=== PATIENT | male | born 1950 | race Caucasian/White ===

== ENCOUNTER 2017-01-05 09:47 | Emergency (ER) | payer OTHER ==
[~2017-01-05] VITALS: Ht 167.6 cm; Wt 97.9 kg
[~2017-01-05 09:47] MED LIST: ASPEC81 PO; CLOT1CRE47 TOP; COEN1CAP28 PO; FLUN0.02 NAE; GLUCTAB7 PO; LORA10CA2 PO; LPR25 PO; MOUTLIQ79; OMEP20TA PO; OXYC-57 PO; ROSU20TA PO; TRAV0.00 OPB; TRIA0.022 TOP; VANC5CAP PO; WARF5TAB7 PO; ZINC50TA3 PO; ZOLP5TAB6 PO
[2017-01-05 09:58] VITALS: TEMP 36.7; Ht 167.6 cm; Wt 97.9 kg
[2017-01-05] MEDS ORDERED: XYLOCAINE 1%/SOD BICARB 20 ML VIAL INFIL ONE (10:30)
[2017-01-05] MEDS ORDERED: CEPH500C2 PO (10:51)
[2017-01-05] MEDS ORDERED: HYDR-5688 PO (10:51)
[2017-01-05 11:01] VITALS: BP 130/72; PULSE 61; O2SAT 98
[2017-01-05] MEDS ORDERED: ASPCH81X PO (11:04)
[2017-01-05] MEDS ORDERED: SULF800T23 PO (11:06)
[2017-01-05] MEDS ORDERED: LOSA50TA6 PO (11:07)
[2017-01-05] MEDS ORDERED: MISCCAP80 PO (11:07)
[2017-01-05] MEDS ORDERED: ISOS30TA3 PO (11:07)
--- NOTE | 2017-01-05 15:08 | EMERGENCY ROOM VISIT NOTE ---
ED Visit Note First contact with patient: 10:03 I have personally seen and evaluated the patient with the PA. I agree with the diagnosis and management decisions and have been personally involved in the case. Please see Zach Romero PA-C's notes for further details of the history, physical and visit.
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
--- NOTE | 2017-01-08 15:10 | Pharmacy Progress Note ---
ED Pharmacist Culture FollowUp Date of Service: Jan 08, 2017. Patient's culture from chest abscess is growing enterococcus casseliflavus. The patient had been seen on 01/05 for L chest wall abscess. The abscess was drained and cultured. He was placed on Keflex 500mg QID x 10 days in addition to the Bactrim he was already taking. The patient did return to the ER 01/07 for f/u. Per Zach Romero PAC the abscess appeared less red, no drainage was noted and no cellulitic changes were noted. He felt the patient was healing nicely. The patient was to have a surgical consult on the last day of his antibiotic therapy. The organism would not be susceptible to cephalosporins or Bactrim. I did review the case with Vamsi Romero. Given the improved appearance of the abscess he felt that a change in antibiotics is not warranted at this time and perhaps the I&D was responsible for the improved abscess appearance. However if the patient's abscess returns or worsens, one may want to consider the use of Augmentin as this should cover the cultured organism.
== END 2017-01-05 11:02 | disposition home or self-care (01) ==
LOC: C.EDB 10:45
DX: L02.213 Cutaneous abscess of chest wall (principal); I25.10 Atherosclerotic heart disease of native coronary artery without angina pectoris; I10 Essential (primary) hypertension

== ENCOUNTER 2017-01-07 09:07 | Emergency (ER) | payer OTHER ==
[~2017-01-07] VITALS: Ht 167.6 cm; Wt 97.3 kg
[~2017-01-07 09:07] MED LIST changes: +ASPCH81X PO; -ASPEC81 PO; +CEPH500C2 PO; -CLOT1CRE47 TOP; -FLUN0.02 NAE; +HYDR-5688 PO; +ISOS30TA3 PO; +LOSA50TA6 PO; +MISCCAP80 PO; -MOUTLIQ79; -OXYC-57 PO; +SULF800T23 PO; -TRIA0.022 TOP; -VANC5CAP PO; -WARF5TAB7 PO
[2017-01-07 09:15] VITALS: TEMP 36.5; Ht 167.6 cm; Wt 97.3 kg
[2017-01-07 10:14] VITALS: BP 99/58; PULSE 50; O2SAT 96
--- NOTE | 2017-01-07 16:28 | EMERGENCY ROOM VISIT NOTE ---
ED Visit Note First contact with patient: 09:20 Chief Complaint: Abscess recheck. History of Present Illness: Mr. Morrell is a 66-year-old white male who ambulates into the ED requesting a recheck from an I&D procedure that was performed on a chest abscess 2 days ago. Patient reports he is feeling much better. He reports his pain has dramatically decreased and he has noted decreasing redness and swelling in the area of his abscess. He denies fevers, chills, sweats, other skin eruptions, skin color changes, decreased appetite, nausea, vomiting, red streaking around his wound. Review of Systems: As noted above in history of present illness. Physical Examination: Vital Signs: Date Time Temp Pulse Resp B/P (MAP) Pulse Ox O2 Delivery O2 Flow Rate FiO2 01/07/17 10:14 50 15 99/58 96 01/07/17 09:15 36.5 49 22 120/80 96 Room Air GENERAL: 66-year-old male in no acute distress, nontoxic-appearing, afebrile and hemodynamically stable. NEUROLOGICAL: Awake, alert and oriented to person, place and time. Answering questions appropriately and following commands. SKIN: Warm, dry and pink. Chest: Just medial to the left nipple patient has an improving abscess with decreasing redness, no lymphangitis or drainage from his I&D procedure. The skin does not appear cellulitic and it is not hot to the touch. ED Course: Patient is assessed as noted above. Patient's medications were reviewed. Nursing reported on they took off his external bandage over the abscess they accidentally removed the packing material. Patient was educated about today's findings and instructed on his treatment plan ; he verbalizes understanding and agreement with this plan. Clinical Impression: Abscess recheck. Improving abscess. Disposition: Patient discharged home in stable condition. Plan: Patient was encouraged to continue his antibiotic therapy as prescribed. Patient does report on the last day of his Keflex use he has a follow-up appointment with general surgery for reevaluation. Patient was encouraged return ED for worsening signs of infection, uncontrolled pain or any new/concerning symptoms.
== END 2017-01-07 10:14 | disposition home or self-care (01) ==
LOC: C.EDB 09:10
DX: Z09 Encounter for follow-up examination after completed treatment for conditions other than malignant neoplasm (principal); L02.213 Cutaneous abscess of chest wall

== ENCOUNTER 2018-09-17 09:36 | Inpatient (IN) ==
[2018-09-17] MEDS ORDERED: SODIUM CHLORIDE 0.9% 1000ML 500 ML IV ONE (10:05)
[2018-09-17 10:28] LABS: Basophils # (auto) 0.02 K/uL (0-0.2); Basophils % (auto) 0.3 %; Eosinophils % (auto) 2.8 %; Hematocrit (blood only) 34.5 % (42-52); Hemoglobin 11.7 g/dL (14.0-18.0); Lymphocytes # (auto) 0.91 K/uL (1.2-3.4); Lymphocytes % (auto) 12.9 %; Mean Corpuscular Hgb Conc 33.9 g/dL (32-36); Mean Corpuscular Volume 94.3 fL (80-100); Monocytes % (auto) 7.1 %; Neutrophils # (auto) 5.42 K/uL (1.4-6.5); Neutrophils % (auto) 76.9 %; Platelet Count 170 K/uL (130-400); RDW Coefficient of Variation 13.6 % (11.5-14.5); RDW Standard Deviation 46.7 fL (36.4-46.3); Red Blood Count 3.66 M/uL (4.7-6.1); White Blood Count 7.05 K/uL (4.8-10.8)
--- NOTE | 2018-09-17 10:35 | XRay Report ---
XR chest 1V portable CLINICAL HISTORY: Chest Pain dyspnea COMPARISON STUDY: 04/06/2013 FINDINGS: Mild stable cardia megaly. Prior median sternotomy. Diaphragms are smooth. Mild prominence of pulmonary vasculature. IMPRESSION: Mild cardiomegaly. Pulmonary vascular congestion. The above report was generated using voice recognition software. It may contain grammatical, syntax or spelling errors. Electronically signed by: Sampson Trejo M.D. 09/17/2018 10:34 AM
[2018-09-17 10:43] LABS: Alanine Aminotransferase 32 U/L (12-78); Albumin Level 3.5 gm/dl (3.4-5.0); Aspartate Aminotransferase 25 U/L (15-37); Bilirubin Direct < 0.1 mg/dl (0-0.2); Blood Urea Nitrogen 17 mg/dl (7-18); Calcium 8.7 mg/dl (8.5-10.1); Carbon Dioxide 27 mmol/L (21-32); Chloride 111 mmol/L (98-107); Creatinine Clr Calc Pharmacy 99.3 ml/min; Est GFR (African American) 107.7; Est GFR (Non-African American) 92.9; Glucose 118 mg/dl (70-99); Magnesium 1.9 mg/dl (1.8-2.4); Potassium 3.9 mmol/L (3.5-5.1); Sodium 142 mmol/L (136-145)
[2018-09-17 10:52] LABS: Albumin Globulin Ratio 1.1 (0.9-2); Alkaline Phosphatase 52 U/L (45-117); Bilirubin,Total 0.3 mg/dl (0.2-1); Globulin 3.2 gm/dl (2.5-4.0); NT Pro B Type Natriuretic Pept 321 pg/ml (0-900); Phosphorus 2.3 mg/dl (2.5-4.9); Total Protein 6.7 gm/dl (6.4-8.2); Troponin I 0.026 ng/ml (0-0.045)
[2018-09-17 11:08] LABS: iSTAT Creatinine 0.8 mg/dl (0.6-1.3); iSTAT Hemoglobin 11.2 g/dl (14.0-18.0); iSTAT Ionized Calcium 1.23 mmol/l (1.12-1.32); iSTAT Potassium 3.8 mEq/L (3.3-5.0)
[2018-09-17 12:23] LABS: Appearance Urine Clear (Clear); Bilirubin Urine Negative (Negative); Blood Urine Negative (Negative); Color Urine Yellow; Glucose Urine UA Negative (Negative); Ketones Urine Negative (Negative); Leukocyte Esterase Urine Negative (Negative); Nitrite Urine Negative (Negative); Protein Urine Negative (Negative); Urobilinogen Urine Negative (Negative)
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
[2018-09-17] MEDS ORDERED: ACETAMINOPHEN 325 MG TAB PO PRN (15:42)
[2018-09-17] MEDS ORDERED: NITROGLYCERIN 0.3 MG/1 TAB 100 TAB BTL SL PRN (15:42)
[2018-09-17] MEDS ORDERED: FLUOCINONIDE 0.05% CR 15 GM TUBE EXT PRN (15:42)
[2018-09-17] MEDS ORDERED: ZOLPIDEM TARTRATE 10 MG TAB PO PRN (15:42)
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
[2018-09-17] MEDS ORDERED: MECLIZINE 12.5 MG TAB PO PRN (16:19)
[2018-09-17] MEDS: FLUTICASONE PROPIONATE NA SPR 16 GM BTL SCH (17:15)
[2018-09-17] MEDS: PANTOprazole 40 MG TAB PO SCH (17:15)
[2018-09-17] MEDS: ISOSORBIDE MONO EXTENDED REL 30 MG TABCR PO SCH (17:16)
[2018-09-17] MEDS: ASPIRIN 81 MG ECTAB PO SCH (17:16)
[2018-09-17] MEDS: TERAZOSIN HCL 1 MG CAP PO SCH (17:16)
[2018-09-17 17:45] LABS: Prothrombin Time 10.6 Seconds (9.0-12.0)
[2018-09-17] MEDS: HEPARIN SOD 5,000 UNIT/0.5 ML VIAL SQ SCH (21:00)
[2018-09-17] MEDS: ROSUVASTATIN CALCIUM 20 MG TAB PO SCH (21:00)
--- NOTE | 2018-09-17 21:24 | Emergency Department Note ---
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 U/L TSH (0.300-4.500) uIu/ml Urine Color Yellow Urine Appearance Clear (Clear) Urine pH 7.0 (4.5-7.5) Ur Specific [place] 1.010 (1.000-1.030) Urine Protein Negative (Negative) Urine Glucose (UA) Negative (Negative) Urine Ketones Negative (Negative) Urine Blood Negative (Negative) Urine Nitrite Negative (Negative) Urine Bilirubin Negative (Negative) Urine Urobilinogen Negative (Negative) Ur Leukocyte Esterase Negative (Negative) 09/17/18 Range/Units 17:12 WBC (4.8-10.8) K/uL RBC (4.7-6.1) M/uL Hgb (14.0-18.0) g/dL POC Hgb (14.0-18.0) g/dl Hct (42-52) % POC Hct (42-52) % MCV (80-100) fL MCH (25-34) pg MCHC (32-36) g/dL RDW Std Deviation (36.4-46.3) fL RDW Coeff of Collin (11.5-14.5) % Plt Count (130-400) K/uL MPV (7.4-10.4) fL Immature Gran % (Auto) % Neut % (Auto) % Lymph % (Auto) % [place] % (Auto) % Eos % (Auto) % Baso % (Auto) % Immature Gran # (Auto) (0.00-0.02) K/uL Neut # (Auto) (1.4-6.5) K/uL Lymph # (Auto) (1.2-3.4) K/uL [place] # (Auto) (0.11-0.59) K/uL Eos # (Auto) (0-0.5) K/uL Baso # (Auto) (0-0.2) K/uL PT 10.6 INR 1.0 POC Sodium (135-144) mEq/L Sodium (136-145) mmol/L POC Potassium (3.3-5.0) mEq/L Potassium (3.5-5.1) mmol/L POC Chloride (101-112) mEq/L Chloride (98-107) mmol/L Carbon Dioxide (21-32) mmol/L POC Total CO2 (24-31) mEq/l Anion Gap (3-11) POC Anion Gap (16-25) mmol/L POC BUN (7-18) mg/dl BUN (7-18) mg/dl Creatinine (0.6-1.4) mg/dl POC Creatinine (0.6-1.3) mg/dl Est Cr Clr Drug Dosing ml/min Est GFR ( Amer) Est GFR (Non-Af Amer) BUN/Creatinine Ratio (10-20) Glucose (70-99) mg/dl POC Glucose (other) (70-99) mg/dl Calcium (8.5-10.1) mg/dl POC Ioniz Calcium Jez (1.12-1.32) mmol/l Phosphorus (2.5-4.9) mg/dl Magnesium (1.8-2.4) mg/dl Total Bilirubin (0.2-1) mg/dl Direct Bilirubin (0-0.2) mg/dl AST (15-37) U/L ALT (12-78) U/L Alkaline Phosphatase (45-117) U/L Troponin I (0-0.045) ng/ml NT-Pro-B Natriuret Pep (0-900) pg/ml Total Protein (6.4-8.2) gm/dl Albumin (3.4-5.0) gm/dl Globulin (2.5-4.0) gm/dl Albumin/Globulin Ratio (0.9-2) Lipase (73-393) U/L TSH (0.300-4.500) uIu/ml Urine Color Urine Appearance (Clear) Urine pH (4.5-7.5) Ur Specific [place] (1.000-1.030) Urine Protein (Negative) Urine Glucose (UA) (Negative) Urine Ketones (Negative) Urine Blood (Negative) Urine Nitrite (Negative) Urine Bilirubin (Negative) Urine Urobilinogen (Negative) Ur Leukocyte Esterase (Negative) Imaging Data Radiologist's Impression: Radiology results as stated below per my review and the radiologist's interpretation: XR chest 1V portable CLINICAL HISTORY: Chest Pain dyspnea COMPARISON STUDY: 04/06/2013 FINDINGS: Mild stable cardia megaly. Prior median sternotomy. Diaphragms are smooth. Mild prominence of pulmonary vasculature. IMPRESSION: Mild cardiomegaly. Pulmonary vascular congestion. The above report was generated using voice recognition software. It may contain grammatical, syntax or spelling errors. Electronically signed by: Sampson Trejo M.D. 09/17/2018 10:34 AM ECG Data Attestation: I personally reviewed and interpreted this ECG as follows: Indication: bradycardia Rate (beats per minute): 37 Rhythm: sinus bradycardia Findings: + other (normal axis) and + 1st degree AV block; no ST depression, no ST elevation and no acute ischemic change Blood Pressure Blood Pressure Findings: Elevated blood pressure Blood Pressure Disposition: further management by hospitalist YAIR Kaur The patient is a pleasant 67 y/o gentleman with a pmhx of CAD s/p CABG, which was complicated by infection in 2012, HTN, HLD, vertigo who presents to the emergency department with episode of vertigo, which began earlier this morning and continued and so EMS was called and was given Zofran and Ativan for his vertigo with subsequent drowsiness and associated hypoxia to 80s improved to 97% on 2L NC per HPI. On arrival the patient is fatigued, uncomfortable appearing but in NAD, AF, HR fluctuating 40-50s with periodic bradycardia to upper 30s however with stable blood pressure 140-160s/70-90s and mentating throughout. Patient is only on 12.5mg of metoprolol daily. Denies any accidental overdose. Patient is alert on arrival but significantly drowsy. He appears clinically dry with mild worsening of vertigo with head movements. No focal deficits. Intact finger to nose. 5/5 strength and SILT x 4 extremities. EKG with sinus bradycardia to 37, with first degree AV block but no evidence of higher grade block or overt ischemia. Repeat EKG unchanged. CXR with possible vascular congestion however patient appears clinically with clear lungs. Moreover, BNP wnl. Troponin wnl, 0.026. WBC wnl. H/H 11.7/34.5 without recent prior values for comparison. Chemistry without acidosis. No significant electrolyte abnormalities. BUN/Cr > 21 c/w patient's clinically dry appearance. LFTs wnl. Patient appearing somewhat improved after IVF hydration, although still drowsy. Unclear etiology to patient's sx at this time. While patient is bradycardic, there is no high grade block and he is not hypotensive, and so less likely to be etiology. Nevertheless, external pacer pads placed as a precuation. Case d/w Yudelka Rain[facility], who will evaluate the patient for admission. Requests we discuss case with cardiology. Case was reviewed with Dr. Barcenas, [facility] cardiology, who evaluated the patient at the bedside. Agrees patient's bradycardia not likely etiology, rather may be related to patient's discomfort/increased vagal tone. Sx possibly related to patient's h/o peripheral vertigo vs possibility of central vertigo. Recommends holding patient's metoprolol at this time. Impression & Plan Vertigo, Bradycardia, sinus Discharge Plan Visit Data *Final* Discharge Date/Time: 09/17/18 15:05 Chief Complaint: Bradycardia Stated Complaint: vertigo ED Provider: Rizwan Holly Discharge Problem: Vertigo, Bradycardia, sinus Patient Disposition: Admitted As Inpatient Discharge Instructions Interventions: ED Discharge Assessment Last Done: 09/17/18 15:05 The scribe's documentation has been prepared under my direction and personally reviewed by me in its entirety. I confirm that the note above accurately reflects all work, treatment, procedures, and medical decision making performed by me.
[2018-09-18 05:31] LABS: Basophils # (auto) 0.02 K/uL (0-0.2); Basophils % (auto) 0.4 %; Eosinophils % (auto) 3.8 %; Hematocrit (blood only) 33.4 % (42-52); Hemoglobin 11.3 g/dL (14.0-18.0); Lymphocytes # (auto) 1.66 K/uL (1.2-3.4); Lymphocytes % (auto) 31.5 %; Mean Corpuscular Hgb Conc 33.8 g/dL (32-36); Mean Corpuscular Volume 94.1 fL (80-100); Mean Platelet Volume 9.9 fL (7.4-10.4); Monocytes # (auto) 0.66 K/uL (0.11-0.59); Monocytes % (auto) 12.5 %; Neutrophils # (auto) 2.73 K/uL (1.4-6.5); Neutrophils % (auto) 51.8 %; Platelet Count 167 K/uL (130-400); RDW Coefficient of Variation 13.6 % (11.5-14.5); RDW Standard Deviation 47.1 fL (36.4-46.3); Red Blood Count 3.55 M/uL (4.7-6.1); White Blood Count 5.27 K/uL (4.8-10.8)
[2018-09-18] MEDS: HEPARIN SOD 5,000 UNIT/0.5 ML VIAL SQ SCH ×3 (05:32→20:27)
[2018-09-18 05:50] LABS: BUN Creatinine Ratio 12.7 (10-20); Calcium 8.2 mg/dl (8.5-10.1); Creatinine Clr Calc Pharmacy 91.1 ml/min; Est GFR (Non-African American) 90.6; Magnesium 1.9 mg/dl (1.8-2.4); Potassium 3.7 mmol/L (3.5-5.1)
[2018-09-18] MEDS: TERAZOSIN HCL 1 MG CAP PO SCH (08:04)
[2018-09-18] MEDS: LORATADINE 10 MG TAB PO SCH (08:04)
[2018-09-18] MEDS: CEROVITE ADV FORMULA TAB PO SCH (08:04)
[2018-09-18] MEDS: ISOSORBIDE MONO EXTENDED REL 30 MG TABCR PO SCH (08:04)
[2018-09-18] MEDS: LOSARTAN POTASSIUM 50 MG TAB PO SCH (08:04)
[2018-09-18] MEDS: ASPIRIN 81 MG ECTAB PO SCH (08:04)
[2018-09-18] MEDS: PANTOprazole 40 MG TAB PO SCH (08:04)
[2018-09-18] MEDS: FLUTICASONE PROPIONATE NA SPR 16 GM BTL SCH (08:05)
[2018-09-18] MEDS ORDERED: NON-FORMULARY MEDICATION (Zinc 50 MG) PO SCH (09:00)
[2018-09-18] MEDS ORDERED: NON-FORMULARY MEDICATION (Coenzyme Q10 [Co Q-10] 100 MG) PO SCH (09:00)
[2018-09-18] MEDS ORDERED: NON-FORMULARY MEDICATION (Glucosamine-Chondroitin 1 TAB) PO SCH (09:00)
--- NOTE | 2018-09-18 11:44 | Hospitalist Progress Note ---
Date of Service September 18, 2018 Assessment & Plan (1) Vertigo: CT head: no CVA, mass will obtain MRI with and without contrast today monitor closely (2) Bradycardia: Noted to have bradycardia heart rate being over 40s Metoprolol HELD dizziness resolved, still has some lightheadedness continue to monitor off Metoprolol Brain MRI pending (3) Hx of CABG: troponins negative (4) HTN (hypertension): Continue current medications except beta-geronimo (5) Hyperlipidemia: Continue statin CODE STATUS Full code DVT prophylaxis Subcu heparin Subjective ff up for dizziness, bradycardia seen resting in bed, comfortable does reports dizziness has resolved, but still feels lightheaded, "head is full" mostly with ambulation denies any other focal neuro symptoms denies chest pain, dyspnea HR in the high 40s no other symptoms Physical Exam Vital Signs (Past 24 Hours): Last Vital Signs Temp 36.4 C L 09/18/18 11:25 Pulse 44 L 09/18/18 11:25 Resp 16 09/18/18 11:25 BP 120/59 L 09/18/18 11:25 Pulse Ox 95 09/18/18 11:25 Physical Exam: General- oriented x 3, not in distress, speaks in sentences with no effort or accessory muscle use Eyes- anicteric Neck- no JVD Lungs- clear breath sounds bilaterally, no rales/wheezes Heart- bradycardic, regular rhythm; no murmurs Abdomen- normal bowel sounds, nondistended, soft, nontender Extremities- no pretibial edema, no calf tenderness Neuro- alert, oriented x 3; no gross focal neurologic deficits Skin- warm & dry Results & Data Laboratory Results Laboratory Results - last 24 hr 09/17/18 09/17/18 09/17/18 16:48 17:12 22:03 WBC RBC Hgb Hct MCV MCH MCHC RDW Std Deviation RDW Coeff of Collin Plt Count MPV Immature Gran % (Auto) Neut % (Auto) Lymph % (Auto) [place] % (Auto) Eos % (Auto) Baso % (Auto) Immature Gran # (Auto) Neut # (Auto) Lymph # (Auto) [place] # (Auto) Eos # (Auto) Baso # (Auto) PT 10.6 INR 1.0 Sodium Potassium Chloride Carbon Dioxide Anion Gap BUN Creatinine Est Cr Clr Drug Dosing Est GFR ( Amer) Est GFR (Non-Af Amer) BUN/Creatinine Ratio Glucose Calcium Magnesium Troponin I 0.029 0.039 09/18/18 09/18/18 05:15 05:15 WBC 5.27 RBC 3.55 L Hgb 11.3 L Hct 33.4 L MCV 94.1 MCH 31.8 MCHC 33.8 RDW Std Deviation 47.1 H RDW Coeff of Collin 13.6 Plt Count 167 MPV 9.9 Immature Gran % (Auto) 0.0 Neut % (Auto) 51.8 Lymph % (Auto) 31.5 [place] % (Auto) 12.5 Eos % (Auto) 3.8 Baso % (Auto) 0.4 Immature Gran # (Auto) 0.00 Neut # (Auto) 2.73 Lymph # (Auto) 1.66 [place] # (Auto) 0.66 H Eos # (Auto) 0.20 Baso # (Auto) 0.02 PT INR Sodium 141 Potassium 3.7 Chloride 111 H Carbon Dioxide 27 Anion Gap 3.0 BUN 11 Creatinine 0.84 Est Cr Clr Drug Dosing 91.1 Est GFR ( Amer) 105.0 Est GFR (Non-Af Amer) 90.6 BUN/Creatinine Ratio 12.7 Glucose 89 Calcium 8.2 L Magnesium 1.9 Troponin I
[2018-09-18] MEDS ORDERED: GADOBUTROL 30ML VIAL IV PRN (16:49)
[2018-09-18] MEDS ORDERED: AMLODIPINE BESYLATE 5 MG TAB PO ONE (17:39)
--- NOTE | 2018-09-18 18:41 | Magnetic Resonance Report ---
MR brain IAC wo/w con HISTORY: 67 years-old Male dizziness, r/o cva/mass acute headache with nausea, vomiting and vertigo. COMPARISON: CT head 09/17/2018 TECHNIQUE: MRI of the brain was obtained both with and without the use of 9 mL Gadavist utilizing int ernal auditory canal mass protocol. FINDINGS: Cyber Security Architect localizer images demonstrate no gross abnormality of the extracranial tissues. There is no rest ricted diffusion to suggest acute or subacute infarction. The midline structures including the corpus callosum, brainstem, optic chiasm, pituitary and pineal glands appear unremarkable the sagittal T1 s eries. No cerebellar tonsillar herniation. Degenerative changes noted about the imaged cervical spine . There is no acute intracranial hemorrhage, midline shift, abnormal extra-axial collections, hydroceph alus or intra-axial mass. Minimal T2/FLAIR hyperintensities about the periventricular white matter henry ggests underlying chronic microvascular ischemic change. The major flow voids at the level the skull base appear to be patent. Mastoid air cells are clear. There is moderate mucosal thickening of the fr ontal, sphenoid and maxillary sinuses with moderate to severe ethmoid sinus mucosal thickening. Orbit s are unremarkable. The skull and soft tissues are within normal limits. The bilateral internal auditory canals, 7th and 8th cranial nerves appear to be within normal limits. No mass of the internal auditory canals or cerebellar pontine angles. The cisternal portions of the 5th cranial nerves are within normal limits bilaterally. There is no abnormal intra-axial or extra-ax ial enhancement identified. IMPRESSION: 1. No acute intracranial abnormality. 2. No acute or subacute infarction. 3. Normal appearance of the bilateral internal auditory canals, VII and VIII cranial nerves. No assoc iated mass or abnormal enhancement. 4. Suggestion of minimal chronic microvascular ischemic changes. 5. Moderate to severe paranasal sinus disease. The above report was generated using voice recognition software. It may contain grammatical, syntax o r spelling errors. Electronically signed by: Thierno Sethi M.D. 09/18/2018 6:39 PM
[2018-09-18] MEDS: ROSUVASTATIN CALCIUM 20 MG TAB PO SCH (20:26)
[2018-09-19] MEDS: HEPARIN SOD 5,000 UNIT/0.5 ML VIAL SQ SCH ×3 (05:44→22:09)
[2018-09-19] MEDS: CEROVITE ADV FORMULA TAB PO SCH (07:41)
[2018-09-19] MEDS: PANTOprazole 40 MG TAB PO SCH (07:41)
[2018-09-19] MEDS: FLUTICASONE PROPIONATE NA SPR 16 GM BTL SCH (07:41)
[2018-09-19] MEDS: LOSARTAN POTASSIUM 50 MG TAB PO SCH (07:41)
[2018-09-19] MEDS: ISOSORBIDE MONO EXTENDED REL 30 MG TABCR PO SCH (07:41)
[2018-09-19] MEDS: ASPIRIN 81 MG ECTAB PO SCH (07:42)
[2018-09-19] MEDS: LORATADINE 10 MG TAB PO SCH (07:42)
[2018-09-19] MEDS: TERAZOSIN HCL 1 MG CAP PO SCH (07:42)
--- NOTE | 2018-09-19 12:16 | Cardiology Progress Note ---
Date of Service September 19, 2018 Assessment & Plan (1) Vertigo: The patient was seen in cardiology follow-up today having had initially been seen in consultation by Dr. Barcenas on 09/17/18. The patient describes that he was in his normal state of health on evening and he went to a play. Next morning he woke up at approximately 6 AM and felt dizziness and nauseousness. He felt that the room was spinning and felt disoriented. He laid in bed and this felt worse. He then had to crawl on the floor. Ultimately his spouse brought him to the emergency room where initial EKG performed on 09/17 at 9:51 AM revealed sinus bradycardia at 37 bpm with first-degree AV block. The patient has been seen by physical therapy and his symptoms had been reproduced with the Umair maneuver. He is feeling better but not quite back to himself. He notes he had been recently trying to get back in shape exercising at the gym. He had a transient episode of dizziness approximately 2 weeks ago but he attributed this to the fact that he had not eaten before his afternoon workout. I went back and reviewed his outpatient record. Serial EKG tracings over the last few years have revealed stable sinus bradycardia in the 50-55 bpm minute range with borderline first-degree AV block and first-degree AV block. He had a stress test several years ago in follow-up after his bypass surgery during which time below average exercise tolerance was noted and the heart rate response to exercise was blunted. The patient describes a long-standing history of being told that he had a slow heart rate even when he was in the . He is only been on 12.5 mg of metoprolol daily, and this is been placed on hold. At present, I think the patient's symptoms are very consistent with vertigo from inner ear etiology however he certainly has significant sinus bradycardia. I initially planned to have him ambulate in the hallway while on telemetry today to assess his heart rate response, but he is not quite feeling up to this. Discussed the option of proceeding with pacemaker implantation with the patient. The patient recalls that he had a very complicated postoperative course after his bypass surgery in 2012 and this included a sternal wound infection and Clostridium difficile infection. He is very hesitant to undergo an invasive procedure and would like to avoid pacemaker if at all possible. At this time I recommend ongoing observation on telemetry. I am going to recommend proceeding with a carotid duplex and a resting transthoracic echocardiogram for further assessment. His TSH was normal earlier this hospital stay. The patient was agreeable to this approach. (2) Bradycardia, sinus: As noted above (3) HTN (hypertension): Blood pressure was elevated yesterday, but improved today. With most recent reading of 126/67. Continue current dose of losartan 50 mg by mouth daily, terazosin, and isosorbide mononitrate. (4) Hx of CABG: Continue aspirin and rosuvastatin. Patient is not a candidate for beta-geronimo due to the sinus bradycardia. Subjective Chief complaint: Follow-up dizziness Subjective: Patient seen and examined. Recent EKGs and telemetry data were reviewed. The patient has a history of coronary heart disease and underwent coronary artery bypass graft surgery in 2012. I had most recently seen him shortly after the surgery in 2012 and he has been following with Sampson Plummer PA-C of our practice in the interim. The patient states he feels slightly better today compared to when he was admitted to the hospital, but he is still not quite himself with some vague dizziness. Physical Exam Vital Signs (Past 24 Hours): Last Vital Signs Temp 36.3 C L 09/19/18 11:08 Pulse 46 L 09/19/18 11:08 Resp 18 09/19/18 11:08 BP 126/67 09/19/18 11:08 Pulse Ox 97 09/19/18 11:08 Physical Exam: General: no acute distress and stated age Eyes: conjunctiva are pink and non-injected, sclera clear Neck: normal jugular venous pulse, no hepatojugular reflux Chest: normal shape and normal respiratory effort Lungs: clear to auscultation and percussion Cardiac Exam: - regular heart sounds, no murmurs, rubs, or gallops, no jugular venous distention Abdomen: abdomen soft, non-tender, no abnormal masses and no hepatosplenomegaly Extremities: no edema and no cyanosis Neuro:awake, coversant, follows commands, no focal motor deficits Psych: appropriate affect and insight. Results & Data Diagnostic Findings EKG performed 09/18/18 at 6:41 AM: Sinus bradycardia at 47 bpm with first-degree AV block, MI interval 246 ms.
[2018-09-19 14:52] LABS: Lyme Ab IgG w/WB Rflx Negative (Negative); Lyme Ab IgM w/WB Rflx Negative (Negative)
--- NOTE | 2018-09-19 20:01 | Hospitalist Progress Note ---
Date of Service September 19, 2018 Assessment & Plan (1) Vertigo: CT head: no CVA, mass MRI with and without contrast: No CVA, lesions Continue meclizine as needed Check for Lyme titer (2) Bradycardia: Noted to have bradycardia heart rate being over 40s Metoprolol HELD dizziness resolved, still has some lightheadedness, fatigue Thermo Cementing Folder Operator consulted Echocardiogram ordered continue to monitor off Metoprolol Possible pacemaker placement if with no improvement (3) Hx of CABG: troponins negative (4) HTN (hypertension): Interval health, blood pressure trending up Amlodipine started Continue to monitor (5) Hyperlipidemia: Continue statin CODE STATUS Full code DVT prophylaxis Subcu heparin Disposition Pending Cardiology evaluation progress Anticipate to return home medically stable and cleared by cardiology service Subjective ff up for dizziness, bradycardia Seen sitting up in bed, not in distress States physical therapy today performed Umair maneuver, but dizziness recurred after the maneuver Still feels some lightheadedness and tiredness with minimal exertion Denies fever or chills, sinus pressure, chest pain, palpitations, shortness of breath No other symptoms Physical Exam Vital Signs (Past 24 Hours): Last Vital Signs Temp 36.4 C L 09/19/18 19:50 Pulse 42 L 09/19/18 19:50 Resp 20 09/19/18 19:50 BP 183/84 H 09/19/18 19:50 Pulse Ox 99 09/19/18 19:50 Physical Exam: General- oriented x 3, not in distress, speaks in sentences with no effort or accessory muscle use Eyes- anicteric Neck- no JVD Lungs- clear breath sounds bilaterally, no crackles or wheezing Heart-bradycardic heart rate, regular rhythm; no murmurs Abdomen- normal bowel sounds, nondistended, soft, nontender Extremities- no pretibial edema, no calf tenderness Neuro- alert, oriented x 3; no gross focal neurologic deficits Skin- warm & dry Results & Data Laboratory Results Laboratory Results - last 24 hr 09/19/18 12:06 Lyme Disease IgG Ab Negative Lyme Disease IgM Ab Negative
[2018-09-19] MEDS: ROSUVASTATIN CALCIUM 20 MG TAB PO SCH (20:04)
[2018-09-20] MEDS: HEPARIN SOD 5,000 UNIT/0.5 ML VIAL SQ SCH ×3 (05:44→22:02)
--- NOTE | 2018-09-20 07:10 | Ultrasound Report ---
BILATERAL CAROTID DOPPLER STUDY HISTORY: dizziness, rule out carotid stenosis COMPARISON: None. TECHNIQUE: Real-time, grayscale, and color Doppler sonography of the carotid arteries was performed. Imaging reviewed in the transverse and longitudinal planes. All measurements were calculated based on NASCET criteria. FINDINGS: Antegrade flow is seen in the bilateral vertebral arteries. The brachial pressures are elevated and asymmetric measuring 213/102 on the right and 185/113 on the left. However, the subclavian arteries demonstrate similar and normal velocities. The peak systolic velocity within the right ICA is 70 cm/s. The right systolic ratio is 1.0. The peak systolic velocity within the left ICA is 92 cm/s. The left systolic ratio is 1.0. IMPRESSION: 1. No hemodynamically significant stenosis seen within the carotid arteries. 2. Elevated brachial pressures as described above. Electronically signed by: Balbir Aggarwal M.D. 09/20/2018 7:08 AM
[2018-09-20] MEDS: ISOSORBIDE MONO EXTENDED REL 30 MG TABCR PO SCH (07:49)
[2018-09-20] MEDS: FLUTICASONE PROPIONATE NA SPR 16 GM BTL SCH (07:49)
[2018-09-20] MEDS: PANTOprazole 40 MG TAB PO SCH (07:50)
[2018-09-20] MEDS: TERAZOSIN HCL 1 MG CAP PO SCH (07:50)
[2018-09-20] MEDS: CEROVITE ADV FORMULA TAB PO SCH (07:50)
[2018-09-20] MEDS: LORATADINE 10 MG TAB PO SCH (07:50)
[2018-09-20] MEDS: LOSARTAN POTASSIUM 50 MG TAB PO SCH (07:50)
[2018-09-20] MEDS: ASPIRIN 81 MG ECTAB PO SCH (07:50)
--- NOTE | 2018-09-20 11:53 | Cardiology Progress Note ---
Date of Service September 20, 2018 Assessment & Plan (1) Bradycardia, sinus: Patient's vertigo symptoms have resolved. He still does not feel himself. Typically he has been ambulating at the gym doing exercises to get in shape without any issues with the exception of an episode of lightheadedness 2 weeks ago. Stress test as an outpatient several years ago documented attenuated heart rate response despite only being on metoprolol tartrate 12.5 mg daily. Ongoing profound sinus bradycardia in the 40-50 bpm range persists despite having had held his metoprolol tartrate 12.5 since Thursday. Although patient had an episode prompting him to come to the hospital that was consistent with vertigo, his ongoing symptoms are suggestive of sinus node dysfunction. I spoke to him again about permanent pacemaker. And he is interested in discussing this with electrophysiology. (2) Hx of CABG: Continue aspirin, isosorbide mononitrate, rosuvastatin. Metoprolol held due to bradycardia is noted. (3) HTN (hypertension): Patient remains hypertension. The blood pressure readings are somewhat uncharacteristic for him. I do not think his high blood pressure explains his symptoms as his most recent blood pressure measurement this morning at 1130 was 120/63 and he still does not feel well. I do think it is time however to treat his blood pressure medications as he has not improved with observation and will therefore increase his losartan from 50 mg daily to 100 mg daily and will add low-dose amlodipine. Subjective Chief complaint: Generalized weakness, episodic dizziness Subjective: Patient states he is still not back to himself. Last evening while sleeping he stood up to use the bathroom and had to sit back down again. He has not had any additional mahamed vertigo-like symptoms, but notes generalized fatigue. Telemetry reveals ongoing sinus bradycardia for the most part in the range of 45 bpm while awake, and down to 37 bpm while sleeping. I see no evidence of high-grade AV block. Physical Exam Vital Signs (Past 24 Hours): Last Vital Signs Temp 36.4 C L 09/20/18 11:29 Pulse 43 L 09/20/18 11:29 Resp 18 09/20/18 11:29 BP 120/63 09/20/18 11:29 Pulse Ox 94 09/20/18 11:29 Physical Exam: General: no acute distress and stated age Eyes: conjunctiva are pink and non-injected, sclera clear Neck: normal jugular venous pulse, no hepatojugular reflux Chest: normal shape and normal respiratory effort Lungs: clear to auscultation and percussion Cardiac Exam: - regular heart sounds, bradycardic no murmurs, rubs, or gallops, no jugular venous distention Abdomen: abdomen soft, non-tender, no abnormal masses and no hepatosplenomegaly Musculoskeletal: no gait disturbance, no weakness Extremities: no edema and no cyanosis Neuro:awake, coversant, follows commands, no focal motor deficits Psych: appropriate affect and insight. Results & Data Diagnostic Findings Echocardiogram revealed normal left ventricular wall motion, normal left ventricular systolic function with calculated left ventricular ejection fraction of 54%. Mild aortic valve sclerosis without stenosis was noted. The aortic root and proximal ascending aorta were mildly dilated. Carotid duplex, no hemodynamically significant carotid artery stenosis. Elevated brachial artery pressures with normal subclavian artery velocities.
[2018-09-20] MEDS ORDERED: LOSARTAN POTASSIUM 50 MG TAB PO ONE (12:00)
[2018-09-20] MEDS: AMLODIPINE BESYLATE 5 MG TAB PO SCH (12:50)
[2018-09-20] MEDS: ROSUVASTATIN CALCIUM 20 MG TAB PO SCH (19:48)
--- NOTE | 2018-09-20 20:06 | Hospitalist Progress Note ---
Date of Service September 20, 2018 Assessment & Plan (1) Vertigo: CT head: no CVA, mass MRI with and without contrast: No CVA, lesions Continue meclizine as needed Lyme titer: negative improving (2) Bradycardia: Noted to have bradycardia heart rate being over 40s Metoprolol HELD dizziness resolved, still has some lightheadedness, fatigue Breaker Mechanic consulted Echocardiogram ordered continue to monitor off Metoprolol still feeling tired, lightheaded EP consulted for possible pacemaker placement (3) Hx of CABG: troponins negative (4) HTN (hypertension): Interval health, blood pressure trending up Amlodipine started Losartan increased monitor (5) Hyperlipidemia: Continue statin CODE STATUS Full code DVT prophylaxis Subcu heparin Disposition Pending Cardiology evaluation progress Anticipate to return home medically stable and cleared by cardiology service Subjective ff up for dizziness, bradycardia seen resting in bed states he feels that dizziness is improving but still feels lightheaded, tired denies chest pain, dyspnea no fever/chills denies other symptoms Physical Exam Vital Signs (Past 24 Hours): Last Vital Signs Temp 36.4 C L 09/20/18 19:49 Pulse 53 L 09/20/18 19:49 Resp 19 09/20/18 19:49 BP 185/90 H 09/20/18 19:49 Pulse Ox 98 09/20/18 19:49 Physical Exam: General- oriented x 3, not in distress, speaks in sentences with no effort or accessory muscle use Eyes- anicteric Neck- no JVD Lungs- clear BS BL Heart-bradycardic, regular rhythm Abdomen- normal bowel sounds, nondistended, soft, nontender Extremities- no pretibial edema, no calf tenderness Neuro- alert, oriented x 3; no gross focal neurologic deficits Skin- warm & dry
[2018-09-21] MEDS: HEPARIN SOD 5,000 UNIT/0.5 ML VIAL SQ SCH ×2 (06:03→14:15)
[2018-09-21 07:01] LABS: BUN Creatinine Ratio 13.2 (10-20); Calcium 9.2 mg/dl (8.5-10.1); Creatinine Clr Calc Pharmacy 79.9 ml/min; Est GFR (African American) 95.6; Est GFR (Non-African American) 82.5; Potassium 4.1 mmol/L (3.5-5.1)
[2018-09-21] MEDS: AMLODIPINE BESYLATE 5 MG TAB PO SCH (07:48)
[2018-09-21] MEDS: ASPIRIN 81 MG ECTAB PO SCH (07:48)
[2018-09-21] MEDS: FLUTICASONE PROPIONATE NA SPR 16 GM BTL SCH (07:49)
[2018-09-21] MEDS: LORATADINE 10 MG TAB PO SCH (07:49)
[2018-09-21] MEDS: PANTOprazole 40 MG TAB PO SCH (07:50)
[2018-09-21] MEDS: CEROVITE ADV FORMULA TAB PO SCH (07:50)
[2018-09-21] MEDS: ISOSORBIDE MONO EXTENDED REL 30 MG TABCR PO SCH (07:50)
[2018-09-21] MEDS: TERAZOSIN HCL 1 MG CAP PO SCH (07:50)
[2018-09-21] MEDS ORDERED: LOSARTAN POTASSIUM 50 MG TAB PO SCH (09:00)
--- NOTE | 2018-09-21 12:00 | Cardiology Progress Note ---
Date of Service September 21, 2018 Assessment & Plan (1) Vertigo: Patient's presentation was certainly consistent with vertigo, and his symptoms have been reproduced during maneuvers with physical therapy. For the last few days he has made a slow but steady improvement. (2) Bradycardia, sinus: The patient has a long-standing history of documented chronic sinus bradycardia as an outpatient. At this time, his heart rates are not significantly different than those which have been documented on a chronic basis as an outpatient. We have been observing the patient for several days, and at this point, I think it is premature to commit the patient to a pacemaker. Therefore recommend discharge off of metoprolol and close outpatient follow-up. If he has ongoing issues with exertional fatigue dizziness, will reconsider indication for pacemaker. Patient was agreeable to this plan, as was his spouse, Radha, whom I spoke to on the telephone. I am going to cancel the EP consultation for now. I have requested an outpatient follow-up visit with me in 2 to 3 weeks at [facility]. The patient also already has a follow-up visit with Mr. Plummer of our practice in October and we are going to keep this as well. If he still feels poorly as an outpatient, will have low threshold for referring him for outpatient pacemaker placement. (3) HTN (hypertension): Metoprolol tartrate was discontinued. Increase losartan from 50 mg to 100 mg daily at discharge. Discharge on new medication of amlodipine 2.5 mg daily. (4) Hx of CABG: Not a candidate for beta-geronimo due to his baseline slow heart rate as noted. Continue aspirin, isosorbide mononitrate, losartan, amlodipine, rosuvastatin. 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 He was counseled that his activity should be limited by symptoms or commonsense. He needs to take his recreational vehicle (RV) for a service appointment in [place]. I recommended that he should hold off on such a driving commitment until he is at least sure it is back to his baseline after about a week. If he is feeling well within 2 days, I think would be reasonable for him to start driving his private automobile around town. Subjective Chief complaint: Follow-up dizziness Subjective: Patient feels improved subjectively today. Blood pressure was improved yesterday afternoon after the addition of amlodipine and increasing losartan dose, trended up however again overnight last night and is improved again today. Telemetry reveals sinus bradycardia in the range of 45 to 55 bpm at rest. The patient ambulated in the hallway. 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 He walked at a reasonable pace, was asymptomatic, and his heart rates came up to the mid 70 be per minute range. He denies any additional vertigo type symptoms. Physical Exam Vital Signs (Past 24 Hours): Last Vital Signs Temp 36.2 C L 09/21/18 11:20 Pulse 49 L 09/21/18 11:20 Resp 18 09/21/18 11:20 BP 104/61 09/21/18 11:20 Pulse Ox 97 09/21/18 11:20 Constitutional: WD/WN, vitals as above Respiratory: normal respiratory effort, lungs clear to auscultation Cardiovascular: Rate/Rhythm: regular rate and + bradycardic Heart Sounds: no murmur Vessels: no JVD Extremities: + AV fistula; no edema Skin: no rashes, warm and dry Neurologic: No focal deficits, conversant, follows commands Results & Data Laboratory Results Comprehensive Metabolic Panel 09/21/18 Range/Units 05:54 Sodium 142 (136-145) mmol/L Potassium 4.1 (3.5-5.1) mmol/L Chloride 109 H (98-107) mmol/L Carbon Dioxide 28 (21-32) mmol/L BUN 13 (7-18) mg/dl Creatinine 0.95 (0.6-1.4) mg/dl Glucose 86 (70-99) mg/dl Calcium 9.2 (8.5-10.1) mg/dl Intake and Output 09/20/18 09/21/18 09/21/18 22:59 06:59 14:59 Intake Total 300 / 1495 Balance 300 / 1495 Intake: Oral 300 / 1495 Other: Other Intake Source Sips # Unmeasured Voids 1 Weight 91.4 kg Medications Administered Current Inpatient Medications Acetaminophen (Tylenol) 650 mg PO Q6H PRN PRN Reason: Pain Stop: 10/17/18 15:41 Amlodipine Besylate (Norvasc) 2.5 mg PO QAM [facility] Stop: 10/20/18 11:59 Last Admin: 09/21/18 07:48 Dose: 2.5 mg Documented by: Aspirin (Ecotrin Ectab) 81 mg PO DAILY [facility] Stop: 10/17/18 15:41 Last Admin: 09/21/18 07:48 Dose: 81 mg Documented by: Fluocinonide (Lidex 0.5%) 1 appln EXT BID PRN PRN Reason: Rash Stop: 10/17/18 15:41 Last Admin: 09/20/18 22:02 Dose: 1 appln Documented by: Fluticasone Propionate (Flonase) 1 sprays NA DAILY [facility] Stop: 10/17/18 15:41 Last Admin: 09/21/18 07:49 Dose: 1 sprays Documented by: Gadobutrol (Gadavist 30ml) 9 ml IV ONCE PRN PRN Reason: Interaction Checking Stop: 09/22/18 16:48 Last Admin: 09/18/18 16:50 Dose: 9 ml Documented by: Heparin Sodium (Porcine) (Heparin Sodium (Porcine)) 5,000 units SQ Q8 [facility] Stop: 10/17/18 21:59 Last Admin: 09/21/18 06:03 Dose: 5,000 units Documented by: Isosorbide Mononitrate (Imdur Extended Rel) 30 mg PO QAM [facility] Stop: 10/17/18 15:41 Last Admin: 09/21/18 07:50 Dose: 30 mg Documented by: Loratadine (Claritin) 10 mg PO DAILY [facility] Stop: 10/18/18 08:59 Last Admin: 09/21/18 07:49 Dose: 10 mg Documented by: Losartan Potassium (Cozaar) 100 mg PO QAM [facility] Stop: 10/21/18 08:59 Last Admin: 09/21/18 07:49 Dose: 100 mg Documented by: Meclizine HCl (Antivert) 12.5 mg PO Q6H PRN PRN Reason: Dizziness or Vertigo Stop: 10/17/18 16:18 Last Admin: 09/17/18 21:01 Dose: 12.5 mg Documented by: Multivitamins/Minerals (Multivitamin W/ Minerals Tab) 1 tab PO DAILY [facility] Stop: 10/18/18 08:59 Last Admin: 09/21/18 07:50 Dose: 1 tab Documented by: Nitroglycerin (Nitrostat) 0.3 mg SL UD PRN PRN Reason: Chest Pain Stop: 10/17/18 15:41 Pantoprazole Sodium (Protonix) 40 mg PO DAILY [facility] Stop: 10/17/18 15:41 Last Admin: 09/21/18 07:50 Dose: 40 mg Documented by: Rosuvastatin Calcium (Crestor) 40 mg PO HS [facility] Stop: 10/17/18 20:59 Last Admin: 09/20/18 19:48 Dose: 40 mg Documented by: Terazosin HCl (Hytrin) 2 mg PO DAILY [facility] Stop: 10/17/18 15:41 Last Admin: 09/21/18 07:50 Dose: 2 mg Documented by: Zolpidem Tartrate (Ambien) 10 mg PO HS PRN PRN Reason: Sleep Stop: 10/17/18 15:41
--- NOTE | 2018-09-21 13:05 | Discharge Summary ---
Date of Service September 21, 2018 Admission HPI Per Admitting Provider He is a 67-year-old male patient past medical history of CAD status post CABG, history of back pain with sciatica, hypertension, hyperlipidemia, and history of deep venous thrombosis of lower extremity apparently woke up at 5 AM with severe dizziness. He tried to go to bathroom and he almost passed out in the bathroom. He was complaining of more dizziness with the neck movement and he denied to have any headache, any blurred vision, any chest pain and/or pressure, any numbness or tingling in the extremities or any weakness on the inside of the body. He has had a severe episode in the past. At the emergency room he was noted to have bradycardia with a heart rate lower 40s. He was seen by the manager clinical informatics and was advised for admission with the possible cause of dizziness being labyrinthitis. Admission Exam Per Admitting Provider Vital Signs (Past 24 Hours): Last Vital Signs Temp 36.3 C L 09/17/18 15:44 Pulse 50 L 09/17/18 15:44 Resp 20 09/17/18 15:44 BP 178/81 H 09/17/18 15:44 Pulse Ox 95 09/17/18 15:44 Physical Exam: Anxious but no apparent distress Constitutional: WD/WN, vitals as above Eyes: PERRL, conjunctivae normal, anicteric sclerae no nystagmus ENMT: external ear and nose normal, oropharynx normal Neck: trachea midline, no thyromegaly Rapid movement of the head and neck did produce some dizziness Respiratory: normal respiratory effort, lungs clear to auscultation Cardiovascular: Rate/Rhythm: regular rate and regular rhythm Heart Sounds: normal S1 and normal S2 Gastrointestinal (Abdomen): Inspection/Auscultation: abdomen normal to in spection and normal bowel sounds Neurologic: Alert, awake and oriented x3 Principal Diagnosis DIZZINESS, LIKELY SECONDARY TO VERTIGO Discharge Exam Vital Signs (Past 24 Hours): Last Vital Signs Temp 36.2 C L 09/21/18 11:20 Pulse 49 L 09/21/18 11:20 Resp 18 09/21/18 11:20 BP 104/61 09/21/18 11:20 Pulse Ox 97 09/21/18 11:20 Physical Exam: General- oriented x 3, not in distress, speaks in sentences with no effort or accessory muscle use Eyes- anicteric Neck- no JVD Lungs- clear BS, no rales, BL Heart- mild bradycardia, regular rhythm; no murmurs Abdomen- normal bowel sounds, nondistended, soft, nontender Extremities- no pretibial edema, no calf tenderness Neuro- alert, oriented x 3; no gross focal neurologic deficits Skin- warm & dry Discharge Data Allergies Allergy/AdvReac Type Severity Reaction Status Date / Time Esmizan-Swf-Dos Reductase Allergy Unknown ELEVATED CK Verified 01/05/17 11:08 Inhibitor cholestyramine Allergy Gastrointestinal Unverified 09/17/18 10:54 Upset Consultations 09/17/18 12:00 ED Decision to Admit Stat 09/19/18 08:30 Consult Cardiology Routine Procedures Performed Operation Date: 09/22/18 08:00 <No data on this case meets the specified criteria> Ordered Studies 09/17/18 14:22 CT head/brain wo con Stat IMPRESSION: 1. No acute intracranial findings. 2. No acoustic neuroma identified however sensitivity diminished on this unenhanced exam. An MRI of the brain with and without contrast IAC protocol would have increased sensitivity. 09/18/18 15:33 MR brain IAC wo/w con Routine IMPRESSION: 1. No acute intracranial abnormality. 2. No acute or subacute infarction. 3. Normal appearance of the bilateral internal auditory canals, VII and VIII cranial nerves. No associated mass or abnormal enhancement. 4. Suggestion of minimal chronic microvascular ischemic changes. 5. Moderate to severe paranasal sinus disease. 09/19/18 10:54 US carotid doppler BI Routine IMPRESSION: 1. No hemodynamically significant stenosis seen within the carotid arteries. 2. Elevated brachial pressures as described above. Hospital Course (1) Vertigo: CT head: no CVA, mass MRI with and without contrast: No CVA, lesions (+) moderate to severe paranasal sinus disease- patient denies symptoms of sinusitis Lyme titer: negative dizziness resolved Continue meclizine as needed (2) Bradycardia: Noted to have bradycardia heart rate being over 40s Metoprolol HELD initially, dizziness/lightheadedness, fatigue felt to be from bradycardia Specialist Physicians consulted, Dr. Slaughter: "At this time, his heart rates are not significantly different than those which have been documented on a chronic basis as an outpatient. We have been observing the patient for several days, and at this point, I think it is premature to commit the patient to a pacemaker. Therefore recommend discharge off of metoprolol and close outpatient follow-up. If he has ongoing issues with exertional fatigue dizziness, will reconsider indication for pacemaker." continue to monitor off Metoprolol, ff up with Cardiology clinic as scheduled (3) Hx of CABG: troponins negative (4) HTN (hypertension): Metoprolol discontinued as discussed above Losartan increased to 100mg Amlodipine 2.5mg po daily started monitor (5) Hyperlipidemia: Continue statin CODE STATUS Full code DVT prophylaxis Subcu heparin Disposition ff up with PCP 3-5 days as outlined in d/c summary ff up with Specialist Physicians as scheduled Total Time Total Time Spent Total Time Spent (In Minutes): 30 mins Discharge Plan Discharge Items Patient Disposition: Home - Self-Care Reason For Visit: DIZZYNESS Discharge Diagnosis: DIZZINESS, LIKELY VERTIGO Discharge Goals: Diagnostic testing and Therapeutic intervention Activity: As commented below Activity Comment: RESUME ACTIVITY GRADUALLY TOLERATED Lifting: Wait until after follow-up appointment Exercise/Sports: Wait until after follow-up appointment Driving/Machine Use Comment: NO DRIVING UNTIL ALLOWED BY MUSIC INTERN Non-emergency contact: Primary Care Provider and Specialist Physicians Call non-emergency contact if: you have any medication questions, your symptoms worsen, your pain is worsening and you have a fever Follow-up/Referrals: John Thacker MD [Physician] - 09/27/18 11:45 am Diet: Heart Healthy Addtl Provider Instructions: FOLLOW UP WITH [facility] AND DR. SLAUGHTER SCHEDULED. CALL PRIMARY CARE PHYSICIAN OR RETURN TO ER IMMEDIATELY IF WITH WORSENING OF SYMPTOMS. Prescriptions: New losartan 50 mg Tablet 100 mg PO QAM 30 Days Qty: 60 RF: 1 meclizine 12.5 mg Tablet 12.5 mg PO Q6H PRN (Reason: dizziness) 7 Days Qty: 20 RF: 0 amlodipine [Norvasc] 5 mg Tablet 2.5 mg PO QAM 30 Days Qty: 15 RF: 1 Continued acetaminophen 325 mg Tablet 650 mg PO UD PRN (Reason: Pain) RF: 0 nitroglycerin [Nitrostat] 0.3 mg Tablet, Sublingual 1 dose sublingual UD PRN (Reason: Chest Pain) RF: 0 isosorbide mononitrate 30 mg tablet extended release 24 hr 30 mg PO QAM RF: 0 omeprazole 40 mg capsule,delayed release(DR/EC) 40 mg PO DAILY RF: 0 aspirin [Aspir-81] 81 mg Tablet,Delayed Release (Dr/Ec) 81 mg PO DAILY RF: 0 terazosin 2 mg capsule 2 mg PO DAILY RF: 0 zinc 50 mg Tablet 50 mg PO DAILY RF: 0 zolpidem 10 mg Tablet 10 mg PO HS PRN (Reason: Sleep) RF: 0 fluocinonide 0.05 % cream 1 dose topical UD PRN (Reason: Rash) RF: 0 fluticasone propionate 50 mcg/actuation [place],Suspension 1 spray INTRANASAL DAILY RF: 0 loratadine 10 mg Tablet 10 mg PO DAILY RF: 0 glucosamine-chondroitin 750-600 mg Tablet 1 tab PO DAILY RF: 0 coenzyme Q10 [Co Q-10] 100 mg Capsule 100 mg PO DAILY RF: 0 rosuvastatin [Crestor] 40 mg tablet 40 mg PO HS RF: 0 Centrum Silver 0.4-300-250 mg-mcg-mcg Tablet 1 tab PO DAILY RF: 0 Discontinued losartan 50 mg tablet 50 mg PO DAILY RF: 0 metoprolol tartrate 25 mg tablet 12.5 mg PO DAILY RF: 0 Stand-Alone Forms: [facility]/Other Patient Handouts: Meclizine Hydrochloride Oral tablet, Losartan Potassium Oral tablet, Amlodipine, ED Bradycardia Discharge Orders: Discharge Order (Routine); Ordered 09/21/18 Ordered By: Александр Yanez Admission Data Admit Date/Time: 09/17/18 14:26 Attending Provider: Александр Yanez Admit Provider: Jacqueline Boone Primary Care Provider: Adonis Gandara Other Providers: Jacqueline Boone ; Blake Slaughter Service: Telemetry Other Interventions: Discharge Summary Assessment (RN) Last Done: 09/21/18 13:25 DC Date/Time DO NOT enter until pt leaves facility: 09/21/18 14:36
--- NOTE | 2018-09-21 13:05 | Hospitalist Progress Note ---
Date of Service September 21, 2018 delayed entry date of service as noted above Assessment & Plan (1) Vertigo: CT head: no CVA, mass MRI with and without contrast: No CVA, lesions Lyme titer: negative PT evaluated the patient much improved continue PRN Meclizine (2) Bradycardia: Noted to have bradycardia heart rate being over 40s Metoprolol HELD initially, dizziness/lightheadedness, fatigue felt to be from bradycardia Computer Architect consulted, Dr. Winstno: "At this time, his heart rates are not significantly different than those which have been documented on a chronic basis as an outpatient. We have been observing the patient for several days, and at this point, I think it is premature to commit the patient to a pacemaker. Therefore recommend discharge off of metoprolol and close outpatient follow-up. If he has ongoing issues with exertional fatigue dizziness, will reconsider indication for pacemaker." continue to monitor off Metoprolol, ff up with Cardiology clinic as scheduled (3) Hx of CABG: troponins negative (4) HTN (hypertension): Metoprolol discontinued as discussed above Losartan increased to 100mg Amlodipine 2.5mg po daily started monitor (5) Hyperlipidemia: Continue statin CODE STATUS Full code DVT prophylaxis Subcu heparin Disposition ff up with PCP 3-5 days as outlined in d/c summary ff up with Computer Architect as scheduled discussed plan of care in detail in patient he is agreeable and comfortable with the plan of care Subjective ff up for dizziness, bradycardia resiting in chair, comfortable brighter in good spirits states he feels much better ambulated in the halls, no dizziness/lightheadedness energy better denies other symptoms states he is ready and would like to be discharged Physical Exam Vital Signs (Past 24 Hours): Last Vital Signs Temp 36.2 C L 09/21/18 11:20 Pulse 49 L 09/21/18 11:20 Resp 18 09/21/18 11:20 BP 104/61 09/21/18 11:20 Pulse Ox 97 09/21/18 11:20 Physical Exam: General- oriented x 3, not in distress, speaks in sentences with no effort or accessory muscle use Eyes- anicteric Neck- no JVD Lungs- clear BS, no rales, BL Heart- mild bradycardia, regular rhythm; no murmurs Abdomen- normal bowel sounds, nondistended, soft, nontender Extremities- no pretibial edema, no calf tenderness Neuro- alert, oriented x 3; no gross focal neurologic deficits Skin- warm & dry
== END 2018-09-21 14:36 | disposition home or self-care (01) | DRG 149 ==
LOC: ED 09:36 → 2S 14:26 → SUATTDRO 14:26 → 2S 15:05